=== PATIENT | male | born 1960 | race Caucasian/White ===

== ENCOUNTER 2017-03-18 14:50 | Emergency (ER) | payer OTHER ==
[~2017-03-18] VITALS: Ht 182.9 cm; Wt 100.0 kg
[2017-03-18 14:51] VITALS: BP 182/103; PULSE 112; RESP 14; TEMP 98.9; O2SAT 98
--- NOTE | 2017-03-18 15:13 | PD ---
HPI Chief Complaint: Flank/Kidney Pain Time Seen by Provider: 15:09 Travel History International Travel<30 days: No Contact w/Intl Traveler<30days: No Traveled to known affect area: No History of Present Illness HPI Patient comes in complaining of left flank pain began at the end of last year that has been getting progressively worse over the past 2 months and even more intense over the past 2 weeks. Patient describes pain as a sharp stabbing pain that radiates across his back. Pain is worse with lying on his left side, leaning to the left, and with certain movement. Pain is constant. Patient denies taking anything for this. Denies any chest pain, shortness of breath, fevers, weight loss, edema, trauma, abdominal pain, or loss or change in bowel or bladder. [facility] Past Medical History Medical History: Denies Significant Hx Social History Alcohol Use: Yes Tobacco Use: No Substance Use: No Review of Systems Except as stated in HPI: all other systems reviewed are Neg Physical Exam Narrative GENERAL: Well-developed, overly nourished, in no acute distress, and non-ill appearing. SKIN: Focused skin assessment warm and dry. HEAD: Atraumatic. Normocephalic. EYES: Pupils equal and round. EOMI. No scleral icterus. No injection or drainage. ENT: No nasal bleeding or discharge. Mucous membranes pink and moist. NECK: Trachea midline. No JVD. Supple. No nuclear rigidity. CARDIOVASCULAR: Regular rate and rhythm. No murmur appreciated. RESPIRATORY: No accessory muscle use. No respiratory distress. Clear to auscultation. Breath sounds equal bilaterally. GASTROINTESTINAL: Abdomen soft, non-tender, nondistended. Hepatic and splenic margins not palpable. Normal bowel sounds 4. No pulsatile mass. Patient reports tenderness over left lower CVA. MUSCULOSKELETAL: No obvious deformities. No clubbing. No cyanosis. No edema. Full range of motion. NEUROLOGICAL: Awake and alert. No obvious cranial nerve deficits. Motor grossly within normal limits. Normal speech. PSYCHIATRIC: Appropriate mood and affect; insight and judgment normal. Data Data Last Documented VS Vital Signs Date Time Temp Pulse Resp B/P Pulse Ox O2 Delivery O2 Flow Rate FiO2 03/18/17 16:57 98.2 87 16 157/85 100 Room Air Orders Complete Blood Count With Diff (03/18/17 15:05) Comprehensive Metabolic Panel (03/18/17 15:05) Lipase (03/18/17 15:05) Urinalysis - C+S If Indicated (03/18/17 15:05) Ct Abd/Pel W/O Iv Contrast (03/18/17 15:05) Iv Access Insert/Monitor (03/18/17 15:05) Ecg Monitoring (03/18/17 15:05) Oximetry (03/18/17 15:05) Labs Laboratory Tests Test 03/18/17 15:18 White Blood Count 9.2 TH/MM3 Red Blood Count 5.15 MIL/MM3 Hemoglobin 15.9 GM/DL Hematocrit 47.4 % Mean Corpuscular Volume 92.0 FL Mean Corpuscular Hemoglobin 30.9 PG Mean Corpuscular Hemoglobin 33.5 % Concent Red Cell Distribution Width 12.8 % Platelet Count 214 TH/MM3 Mean Platelet Volume 8.0 FL Neutrophils (%) (Auto) 68.2 % Lymphocytes (%) (Auto) 21.4 % Monocytes (%) (Auto) 8.1 % Eosinophils (%) (Auto) 1.7 % Basophils (%) (Auto) 0.6 % Neutrophils # (Auto) 6.2 TH/MM3 Lymphocytes # (Auto) 2.0 TH/MM3 Monocytes # (Auto) 0.7 TH/MM3 Eosinophils # (Auto) 0.2 TH/MM3 Basophils # (Auto) 0.1 TH/MM3 CBC Comment DIFF FINAL Differential Comment Urine Color YELLOW Urine Turbidity CLEAR Urine pH 6.5 Urine Specific [place] 1.009 Urine Protein NEG mg/dL Urine Glucose (UA) NEG mg/dL Urine Ketones NEG mg/dL Urine Occult Blood NEG Urine Nitrite NEG Urine Bilirubin NEG Urine Urobilinogen LESS THAN 2.0 MG/DL Urine Leukocyte Esterase NEG Urine RBC LESS THAN 1 /hpf Urine WBC 2 /hpf Microscopic Urinalysis Comment CULT NOT INDICATED Sodium Level 139 MEQ/L Potassium Level 3.8 MEQ/L Chloride Level 106 MEQ/L Carbon Dioxide Level 24.2 MEQ/L Anion Gap 9 MEQ/L Blood Urea Nitrogen 7 MG/DL Creatinine 1.14 MG/DL Estimat Glomerular Filtration 67 ML/MIN Rate Random Glucose 100 MG/DL Calcium Level 8.9 MG/DL Total Bilirubin 0.4 MG/DL Aspartate Amino Transf 20 U/L (AST/SGOT) Alanine Aminotransferase 31 U/L (ALT/SGPT) Alkaline Phosphatase 66 U/L Total Protein 7.6 GM/DL Albumin 3.9 GM/DL Lipase 180 U/L MDM Medical Decision Making Medical Screen Exam Complete: Yes Emergency Medical Condition: Yes Interpretation(s) CT abdomen and pelvis read by radiologist shows: 1. No renal stones are identified. 2. Diverticulosis without evidence of diverticulitis. Differential Diagnosis UTI, pyelonephritis, pancreatitis, renal calculi, dehydration, electrolyte Abnormality, mass, musculoskeletal pain, other Narrative Course The patient presented complaining of back pain. There was no history of preceding trauma. Evaluation included a CT scan and no obvious fracture, kidney stone, mass, or acute disease was noted at this time. The patients evaluation was consistent with soft tissue injury and not consistent with bony injury. The patients neurological exam is normal with normal motor and sensory. There is no saddle paresthesias reported and no bowel or bladder incontinence or retention. Clinical suspicion, plan of care and management was discussed with the patient. The patient was instructed to follow up with their health care provider. The patient was also instructed to return if the pain worsened, changed, or developed weakness or bowel or bladder trouble. The patient agreed with plan. There was no evidence to support genitourinary etiology as well. There is also no evidence to suggest vascular pathology such as AAA dissection. There was also no clinical evidence by history, exam or risk factors to suggest atypical presentation of cardiac disease such as ACS, AMI or atypical angina. No fevers or other evidence to suspect infectious processes, abscess etc. Patient in no obvious distress upon re-evaluation. All pertinent laboratory/ Radiology result(s) discussed with patient/family. Any questions/concerns in reference to patient diagnosis/condition discussed and clarified prior to patient's discharge. Reinforced sheer importance of close follow up with patient 's primary physician or primary care clinic. Instructed patient to return to ED immediately, if symptoms return/worsen. Pt showed understanding of above instructions. Further instructions and recommendations were detailed in discharge paperwork. Pt ambulated without difficulty out of ED at discharge. Diagnosis Primary Impression: Musculoskeletal pain Additional Impression: Diverticulosis Qualified Code: K57.90 - Diverticulosis of intestine without bleeding, unspecified intestinal tract location Patient Instructions: Diverticulosis (ED), Diverticulosis Diet (ED), General Instructions, Musculoskeletal Pain (ED) Additional Instructions: Follow-up with your primary care physician and 3-5 days for reevaluation. Use [id number] Tylenol and/or ibuprofen as needed for pain. Follow instructions on the packaging. Return to the emergency department if symptoms get worse. Disposition: 01 DISCHARGE HOME Condition: Ramiro Foley March 18, 2017 15:13
[2017-03-18 15:37] LABS: AUTOMATED NEUTROPHIL # 6.2 TH/MM3 (1.8-7.7); BASOPHIL # 0.1 TH/MM3 (0-0.2); BASOPHIL % 0.6 % (0.0-2.0); EOSINOPHIL # 0.2 TH/MM3 (0-0.4); EOSINOPHIL % 1.7 % (0.0-4.0); HEMATOCRIT 47.4 % (39.0-51.0); HEMO FLAGS DIFF FINAL; LYMPH % 21.4 % (9.0-44.0); MEAN CORPUSCULAR HEMOGLOBIN 30.9 PG (27.0-34.0); MEAN CORPUSCULAR HGB CONC 33.5 % (32.0-36.0); MONO % 8.1 % (0.0-8.0); NEUT % 68.2 % (16.0-70.0); PLATELET COUNT 214 TH/MM3 (150-450); RED BLOOD COUNT 5.15 MIL/MM3 (4.50-5.90); RED CELL DISTRIBUTION WIDTH 12.8 % (11.6-17.2); WHITE BLOOD COUNT 9.2 TH/MM3 (4.0-11.0)
[2017-03-18 15:56] LABS: BLOOD, URINE NEG (NEG); GLUCOSE,URINE NEG (NEG); KETONE, URINE NEG (NEG); NITRITE,URINE NEG (NEG); PH, URINE 6.5 (5.0-8.5); URINE COLOR YELLOW (YELLW/STRAW)
[2017-03-18 16:00] LABS: ANION GAP 9 MEQ/L (5-15); AST (GOT) 20 U/L (15-37); BICARBONATE 24.2 MEQ/L (21.0-32.0); BLOOD UREA NITROGEN 7 MG/DL (7-18); CHLORIDE 106 MEQ/L (98-107); GLOMERULAR FILTRATION RATE 67 ML/MIN (>89); POTASSIUM 3.8 MEQ/L (3.5-5.1); SODIUM (NA) 139 MEQ/L (136-145)
[2017-03-18 16:04] LABS: ALKALINE PHOSPHATASE 66 U/L (45-117); ALT (GPT) 31 U/L (12-78); TOTAL BILIRUBIN ADULT 0.4 MG/DL (0.2-1.0)
[2017-03-18 16:08] LABS: COMMENT (UR) CULT NOT INDICATED; CULTURE IF INDICATED CULT NOT INDICATED
--- NOTE | 2017-03-18 16:09 | RADRPT ---
EXAM DATE/TIME: 03/18/2017 15:47 [facility] COMPARISON: No previous studies available for comparison. INDICATIONS : Evaluate for calculi, left flank pain. ORAL CONTRAST: No oral contrast ingested. RADIATION DOSE: 19.84 CTDIvol (mGy) MEDICAL HISTORY : None SURGICAL HISTORY : None. ENCOUNTER: Initial ACUITY: 2 months PAIN SCALE: 7/10 LOCATION: Left flank region. TECHNIQUE: Volumetric scanning of the abdomen and pelvis was performed. Using automated exposure control and ad justment of the mA and/or kV according to patient size, radiation dose was kept as low as reasonably achievable to obtain optimal diagnostic quality images. FINDINGS: Examination of the lung bases demonstrates no abnormality. No pleural fluid is identified. No pulmona ry nodules are present. The liver and spleen are free of focal defects. The gallbladder and pancreas demonstrate no abnormality. The adrenal glands are normal. The kidneys demonstrate no evidence of suellen id renal mass or hydronephrosis. No free fluid or abdominal masses are identified. No para-aortic edith nopathy is seen. Examination of the pelvis demonstrates no evidence of free fluid or pelvic mass. No abnormally enlarg ed inguinal or retroperitoneal lymph nodes are present. The bladder is unremarkable. There is diverti culosis without evidence of diverticulitis. Examination of the right lower quadrant demonstrates no a bnormality. The appendix is identified and appears normal. CONCLUSION: 1. No renal stones are identified. 2. Diverticulosis without evidence of diverticulitis. Damon Zavaleta MD on March 18, 2017 at 16:04 Board Certified Radiologist. This report was verified electronically.
[2017-03-18 16:57] VITALS: BP 157/85; PULSE 87; RESP 16; TEMP 98.2; O2SAT 100
== END 2017-03-18 17:02 | disposition home or self-care (01) ==
LOC: NEPD 14:50
DX: M79.1 Myalgia (principal); K57.90 Diverticulosis of intestine, part unspecified, without perforation or abscess without bleeding
CPT/HCPCS: 74176; 80053; 81001; 83690; 85025